=== PATIENT | male | born 1950 ===

== ENCOUNTER 2017-04-05 14:53 | Emergency (ER) | payer SELFPAY ==
[2017-04-05 16:01] VITALS: BP 108/66
--- NOTE | 2017-04-05 16:32 | UC ---
Knee Pain HPI - HPI Summary HPI Summary: 66 y/o male presents to the urgent care c/o RT knee pain with redness and swelling s/p kneeling placing a ceramic tile 3 days ago for couple hours. Pt states his pain 10/10 when he bends his knee, better at rest. He can ambulate with the help of a cane. Pt denies fever, but he recently Dx with poison kenyatta 1 week ago. Pt denies SOB, chest pain, N/V/D. No other complains - History of Current Complaint Chief Complaint: UCLowerExtremity Stated Complaint: RIGHT KNEE INJURY/PAIN Time Seen by Provider: 04/05/17 16:19 Hx Obtained From: Patient Onset/Duration: Gradual Onset, Lasting Days, Still Present Severity Initially: Mild Severity Currently: Severe Location Of Injury: RT knee Pain Intensity: 10 - when bending the RT knee Pain Scale Used: 0-10 Numeric Character: Sharp Aggravating Factor(s): Movement, Stairs Alleviating Factor(s): Rest Associated Signs And Symptoms: Positive: Swelling, Redness. Negative: Bruising , Fever, Numbness, Tingling Able to Bear Weight: Yes - Risk Factors Septic Arthritis Risk Factor: Negative Gout Risk Factor: Age ^ 39, Male - Allergies/Home Medications Allergies/Adverse Reactions: Allergies Allergy/AdvReac Type Severity Reaction Status Date / Time No Known Allergies Allergy Verified 04/05/17 16:00 Home Medications: Home Medications Aspirin [Aspirin 81 MG TAB] 81 mg PO DAILY 04/05/17 [History Confirmed 04/05/17] Atorvastatin* [Lipitor*] 40 mg PO QPM 04/05/17 [History Confirmed 04/05/17] Naproxen Sodium [Naproxen Sodium 220 mg cap] 220 mg PO 04/05/17 [History] PMH/Surg Hx/FS Hx/Imm Hx Previously Healthy: Yes Cardiovascular History: Myocardial Infarction - Surgical History Surgical History: Yes Surgery Procedure, Year, and Place: STENT PLACEMENT--06/2015 - Family History Known Family History: Positive: Cardiac Disease, Hypertension - Social History Occupation: Employed Full-time Lives: With Family Alcohol Use: None Substance Use Type: None Smoking Status (MU): Former Smoker When Did the Patient Quit Smoking/Using Tobacco: AGE 20 YRS Review of Systems Constitutional: Negative Skin: Negative Eyes: Negative ENT: Negative Respiratory: Negative Cardiovascular: Negative Gastrointestinal: Negative Genitourinary: Negative Motor: Negative Neurovascular: Negative Musculoskeletal: Other: - RT knee pain w/ redness and severe swelling Neurological: Negative Psychological: Negative All Other Systems Reviewed And Are Negative: Yes Physical Exam Triage Information Reviewed: Yes Appearance: Well-Appearing, No Pain Distress, Well-Nourished Vital Signs: Initial Vital Signs Temp 99.3 F 04/05/17 15:51 Pulse 95 04/05/17 15:51 Resp 20 04/05/17 15:51 BP 108/66 04/05/17 15:51 Pulse Ox 100 04/05/17 15:51 Vital Signs Reviewed: Yes Eye Exam: Normal Eyes: Positive: Conjunctiva Clear - PERRLA, EOMI, fundi grossly normal ENT Exam: Normal ENT: Positive: Normal ENT inspection, Hearing grossly normal, Pharynx normal, TMs normal Dental Exam: Normal Neck exam: Normal Neck: Positive: Supple, Nontender, No Lymphadenopathy Respiratory Exam: Normal Respiratory: Positive: Chest non-tender, Lungs clear, Normal breath sounds Cardiovascular Exam: Normal Cardiovascular: Positive: RRR, No Murmur, Pulses Normal, Brisk Capillary Refill Abdominal Exam: Normal Abdomen Description: Positive: Nontender, No Organomegaly, Soft. Negative: CVA Tenderness (R), CVA Tenderness (L) Bowel Sounds: Positive: Present Musculoskeletal Exam: Normal Musculoskeletal: Positive: Strength Intact, Other: - RT knee with moderate swelling and redness, Tenderness on light palpation, decrease ROM due to pain, Pt able to ambulate. Positive pulses, sensation and positive capillary refill Neurological Exam: Normal Psychological Exam: Normal Skin Exam: Normal Knee Pain Course/Dx - Course Course Of Treatment: 66 y/o male presents to the urgent care c/o RT knee pain with redness and swelling s/p kneeling placing a ceramic tile 3 days ago for couple hours. Pt states his pain 10/10 when he bends his knee, better at rest. He can ambulate with the help of a cane. Pt denies fever, but he recently Dx with poison kenyatta 1 week ago. Pt denies SOB, chest pain, N/V/D. Hx obtained. PE abnormal findings:Musculoskeletal: Positive: Strength Intact, Other: - RT knee with moderate swelling and redness, Tenderness on light palpation, decrease ROM due to pain, Pt able to ambulate. Positive pulses, sensation and positive capillary refill. RT knee x-ray ordered. Impressions: joint effusion and soft tissue selling. No fracture observed. Pt Sent to the ED at [facility] to r/o septic joint. I spoke to DR Mayers and he said he will accept the patient. Pt signed out the AMA for ambulance. His will took him to the ED at [facility]. Pt left the clinic ambulating with the help of a cane. vital signs are normal. - Differential Dx/Diagnosis Differential Diagnosis/HQI/PQRI: Bursitis, Cellulitis, Fracture (Closed), Gout, Infection, Phlebitis, Puncture Wound, Tendonitis Provider Diagnoses: RT knee pain r/o septic joint - Physician Notifications Discussed Patient Care With: Bebeto Arellano - Dr Arellano agreed with PT care and treatment. Discharge - Discharge Plan Condition: Stable Disposition: AGAINST MEDICAL ADVICE Patient Education Materials: Swollen Knee Joint (ED) Referrals: Non Staff,Doctor [Primary Care Provider] - [facility] [Outside]
--- NOTE | 2017-04-05 17:12 | RAD ---
Indication: Right knee pain. 4 views of the right knee demonstrates no fracture. There is suggestion of a joint effusion. Soft tissue swelling is noted. IMPRESSION: Likely joint effusion with soft tissue swelling. No fracture is noted.
== END 2017-04-05 17:30 | disposition left against medical advice (07) ==
LOC: UCCORT 14:53
DX: M25.561 Pain in right knee (principal); I25.2 Old myocardial infarction; Z95.5 Presence of coronary angioplasty implant and graft; Z79.82 Long term (current) use of aspirin; Z87.891 Personal history of nicotine dependence
CPT/HCPCS: 99202; G0463